=== PATIENT | male | born 1945 | race Caucasian/White ===

== ENCOUNTER 2018-08-15 11:47 | Emergency (ER) | payer MEDICARE, OTHER ==
[2018-08-15 12:06] VITALS: BP 123/81
--- NOTE | 2018-08-15 13:35 | ED Physician Documentation ---
History of Present Illness - Stated complaint Stated Complaint: R THUMB PAIN - Chief complaint Chief Complaint: Ext Problem - History obtained from History obtained from: Patient - History of Present Illness Timing: How many days ago (4) - Additonal information Additional information: 73-year-old male has developed pain and swelling around the cuticle of the right thumb and He has some pain associated with this and discoloration underneath his nail. He did not injure his finger and he has had something similar to this before with a paronychia. He denies any fever or chills. Review of Systems Constitutional: denies: Fever, Chills Respiratory: denies: Cough GI: denies: Vomiting Skin: denies: Rash Musculoskeletal: reports: Extremity pain. denies: Neck pain, Back pain Neurologic: denies: Generalized weakness, Focal weakness, Numbness PD PAST MEDICAL HISTORY - Past Surgical History Past Surgical History: Yes HEENT: Tonsil/Adenoidectomy - Present Medications Home Medications: Ambulatory Orders Medication Instructions Recorded Confirmed Supplements 05/01/14 05/01/14 Meclizine [Antivert] 25 mg PO Q6H PRN #20 tablet 12/25/15 Promethazine [Phenergan] 25 - 50 mg PO Q6H PRN #10 tab 12/25/15 Sulfamethoxazole/Trimethoprim 1 each PO ACHS #14 tablet 08/15/18 [Sulfamethoxazole-Tmp Ds Tablet] - Allergies Allergies/Adverse Reactions: Allergies Allergy/AdvReac Type Severity Reaction Status Date / Time No Known Drug Allergies Allergy Unverified 12/25/15 14:16 - Social History Does the pt smoke?: No Smoking Status: Never smoker Does the pt drink ETOH?: No Does the pt have substance abuse?: No - Immunizations Immunizations are current?: Yes - POLST Patient has POLST: No PD ED PE NORMAL - Vitals Vital signs reviewed: Yes (hypertensive mild) - General General: Alert and oriented X 3, No acute distress, Well developed/nourished - HEENT HEENT: Atraumatic, PERRL, EOMI - Respiratory Respiratory: No respiratory distress - Derm Derm: Normal color, Warm and dry, No rash - Extremities Extremities: No deformity, No edema, Other (There is erythema and swelling to the cuticle on the right thumb there is not extension of redness or lymphangitic streaking. There is discoloration consistent with elevation of the proximal nail with pus. There is no drainage. ) - Neuro Neuro: Alert and oriented X 3, centrifuge separator tender 2-12 intact, No motor deficit, No sensory deficit, Normal speech Eye Opening: Spontaneous Motor: Obeys Commands Verbal: Oriented GCS Score: 15 - Psych Psych: Normal mood, Normal affect Results - Vitals Vitals: Vital Signs - 24 hr 08/15/18 12:01 Temperature 36 C L Heart Rate 70 Respiratory 16 Rate Blood Pressure 123/81 H O2 Saturation 97 Oxygen O2 Source Room air PD MEDICAL DECISION MAKING - ED course Complexity details: considered differential, d/w patient ED course: 73-year-old male with a paronychia and pus under the nail is placed on the antibiotics and will use a warm compress I discussed with him trephinating the nail and he is not ready to do that at this point. He will do it himself if he feels it is needed. Departure - Departure Disposition: 01 Home, Self Care Clinical Impression: Paronychia Condition: Stable Instructions: ED Fingernail Infec Follow-Up: Devin Aguilar MD [Provider Admit Priv/Credential] - Prescriptions: Sulfamethoxazole/Trimethoprim [Sulfamethoxazole-Tmp Ds Tablet] 1 each PO ACHS #14 tablet
== END 2018-08-15 13:43 | disposition home or self-care (01) ==
LOC: ED 11:47
DX: L03.011 Cellulitis of right finger (principal)
CPT/HCPCS: 99283

== ENCOUNTER 2022-01-11 15:04 | Emergency (ER) | payer MEDICARE, OTHER ==
[2022-01-11 15:14] VITALS: BP 140/76
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
[2022-01-11] MEDS ORDERED: BACITRACIN ZINC OINT 1 PACKET TOP STA (15:37)
== END 2022-01-11 15:49 | disposition home or self-care (01) ==
LOC: ED 15:04
DX: S61.412A Laceration without foreign body of left hand, initial encounter (principal); W45.8XXA Other foreign body or object entering through skin, initial encounter; Y93.89 Activity, other specified; Y92.009 Unspecified place in unspecified non-institutional (private) residence as the place of occurrence of the external cause
CPT/HCPCS: 12002; 99281; A9270

== ENCOUNTER 2022-01-14 06:57 | Emergency (ER) | payer MEDICARE, OTHER ==
[2022-01-14 07:19] VITALS: BP 139/83
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
== END 2022-01-14 07:48 | disposition home or self-care (01) ==
LOC: ED 06:57
DX: S69.92XA Unspecified injury of left wrist, hand and finger(s), initial encounter (principal); X58.XXXA Exposure to other specified factors, initial encounter
CPT/HCPCS: 99281; 99282

== ENCOUNTER 2022-08-24 10:28 | Outpatient (CLI) | payer MEDICARE, OTHER ==
--- NOTE | 2022-08-24 17:27 | XRAY Report ---
PROCEDURE: Chest 2 View X-Ray INDICATIONS: COUGH TECHNIQUE: 2 views of the chest were acquired. COMPARISON: None. FINDINGS: Surgical changes and devices: None. Lungs and pleura: Diffuse chronic interstitial changes. Large density at the right lung base probably reflects or consolidation. Underlying vascular congestion noted as well. Blunting the right costophr enic angle. Left pleural space clear Mediastinum: Mediastinal contours are normal. Heart size is normal. Bones and chest wall: No suspicious bony abnormalities. Soft tissues appear unremarkable. IMPRESSION: 1. Moderate right pleural effusion and underlying vascular congestion 2. Large density at the right lung base, probable right middle lobe may reflect consolidation. Consid er follow-up CT evaluation Reviewed by: Siddhartha Jaimes MD on 08/24/2022 4:12 PM AKST Approved by: Siddhartha Jaimes MD on 08/24/2022 4:12 PM AKST Station ID: [id number]
== END 2022-08-24 10:29 | disposition home or self-care (01) ==
LOC: DI 10:28
PROVIDERS: ATTEND Family Medicine
DX: R05.9 Cough, unspecified (principal); U07.1 COVID-19; J90 Pleural effusion, not elsewhere classified; R91.8 Other nonspecific abnormal finding of lung field

== ENCOUNTER 2022-08-31 14:45 | Outpatient (CLI) | payer MEDICARE, OTHER ==
--- NOTE | 2022-08-31 16:49 | XRAY Report ---
PROCEDURE: Chest 2 View X-Ray INDICATIONS: RIGHT MIDDLE LOBE PNEUMONIA TECHNIQUE: 2 views of the chest were acquired. COMPARISON: CXR 08/24/2022. FINDINGS: Surgical changes and devices: None. Lungs and pleura: Silhouetting at the right lung base is overall similar. Small right pleural effusio n. Prominent, measuring markings. Mediastinum: Mediastinal contours are unchanged. Heart size is within normal limits. Bones and chest wall: No suspicious bony abnormalities. Soft tissues appear unremarkable. IMPRESSION: Right lower lobe consolidation or mass. Small right pleural effusion. Suspect pulmonary vascular engorgement. Recommend CT chest with IV contrast for further evaluation. Message left at urgent care at time of dictation. Reviewed by: Rafa Augirre MD on 08/31/2022 4:48 PM PST Approved by: Rafa Aguirre MD on 08/31/2022 4:48 PM PST Station ID: [id number]
== END 2022-08-31 14:46 | disposition home or self-care (01) ==
LOC: DI 14:45
PROVIDERS: ATTEND Family Medicine
DX: J18.9 Pneumonia, unspecified organism (principal); R91.8 Other nonspecific abnormal finding of lung field; J90 Pleural effusion, not elsewhere classified

== ENCOUNTER 2022-09-01 09:39 | Outpatient (CLI) | payer MEDICARE, OTHER ==
[2022-09-01 09:59] LABS: CREATININE 0.8 mg/dL (0.6-1.2)
[2022-09-01] MEDS ORDERED: iohexoL-300 100 ML VIAL ONE ×2 (10:02→14:58)
[2022-09-01] MEDS ORDERED: iohexoL-300 100 ML VIAL IVP ONE (10:25)
--- NOTE | 2022-09-01 11:04 | CT Report ---
PROCEDURE: CHEST W INDICATIONS: ABN CHEST XRAY, PNA CONTRAST:100ml omni 300 TECHNIQUE: After the administration of intravenous contrast, 1 mm axial images were acquired from the pulmonary apices through the posterior costophrenic angles. Axial 5 mm soft tissue kernel reconstructions were performed as well as 8 mm axial MIP and coronal and sagittal 5 mm reformations. For radiation dose reduction, the following was used: automated exposure control, adjustment of mA and/or kV according to patient size. COMPARISON: Chest radiograph dated 08/31/2022 and 08/24/2022. FINDINGS: Image quality: Excellent. Lungs and pleura: There are innumerable pulmonary nodules seen scattered throughout bilateral lung fi elds. Largest right upper lobe nodule measures 1.1 cm in size series 4 image 86. Largest right middle lobe nodule measures 7 mm in size series 4 image 256. Largest left upper lobe nodule measures 7 mm i n size series 4 image 124. Largest left lower lobe nodule measures 1.3 x 0.7 cm in size series 4 imag e 164. There is moderate sized right pleural effusion with near complete atelectasis of right lower l obe and compressive atelectasis in posterior aspect of right upper lobe. Fluid is seen extending to m inor fissure. Central airway is patent. There is suggestion of occluded distal right lower lobe bronc hus. No left-sided pleural effusion. No pneumothorax. Mediastinum: Heart size is enlarged. No pericardial effusion. Enlarged mediastinal and hilar lymph nodes are seen measures up to 1.4 cm in size in right paratracheal space series 3 image 30. Ascending thoracic aortic aneurysm is noted measures up to 4.3 cm in largest AP diameter. Pulmonary artery is also enlarged in size which can be seen associated with pulmonary vascular hypert ension. Esophagus is normal in caliber. No hiatal hernia. Bones and chest wall: No suspicious bony lesions. No vertebral body compression fractures. No axil guillaume or supraclavicular adenopathy by size criteria. The thyroid is normal in size and there are no incidental findings.. Abdomen: Visualized upper abdominal solid organs appear normal. Upper abdominal bowel loops are nor mal in caliber. There is suggestion of gallbladder wall thickening and small amount of pericholecyst ic fluid. IMPRESSION: 1. Moderate to large partially loculated right pleural effusion with near complete atelectasis of rig ht lower lobe and mild dependent atelectasis in posterior aspect of right upper and middle lobes. Flu id is seen extending to minor fissure. No left-sided pleural effusion. No pneumothorax. 2. Numerable solid nodules scattered throughout bilateral aerated lung silver concerning for extensiv e pulmonary metastatic disease. 3. Enlarged mediastinal and hilar lymph nodes concerning for metastatic lymphadenopathy. 4. Heart size is enlarged, no pericardial effusion. Prominent size of ascending thoracic aorta measur es up to 4.3 cm in largest AP diameter. Prominent size of main pulmonary artery is also seen which ca n be seen associated with pulmonary vascular hypertension. 5. Suggestion of occluded distal right lower lobe bronchus which may represent fluid and inflammatory material within the distal bronchus versus tumor mass occlusion. 6. Gallbladder wall thickening and small amount of pericholecystic fluid, suggest clinical correlatio n for possible cholecystitis. CLINICAL RECOMMENDATION STATEMENTS: In patients <35 years with an ITN detected on CT, MRI, or extrathyroidal ultrasound, the Committee re commends further evaluation with dedicated thyroid ultrasound if the nodule is "e1 cm and has no susp icious imaging features, and if the patient has normal life expectancy. In patients "e35 years with an ITN detected on CT, MRI, or extrathyroidal ultrasound, the Committee r ecommends further evaluation with dedicated thyroid ultrasound if the nodule is "e1.5 cm and has no s uspicious imaging features, and if the patient has normal life expectancy. (ACR, 2014) Reviewed by: Robert Gore MD on 09/01/2022 11:02 AM PST Approved by: Robert Gore MD on 09/01/2022 11:02 AM PST Station ID: [id number]
[2022-09-01] MEDS ORDERED: DIATRIZOATE MEGLU/DIATRIZO SOD 30 ML BOTTLE PO ONE ×2 (14:58→19:01)
[2022-09-01 15:09] LABS: BASOPHILS # (AUTO) 0.1 10^3/uL (0.0-0.1); BASOPHILS % (AUTO) 0.5 %; EOSINOPHILS # (AUTO) 1.5 10^3/uL (0.0-0.7); EOSINOPHILS % (AUTO) 8.6 %; HCT - HEMATOCRIT 42.1 % (42.0-52.0); HGB - HEMOGLOBIN 13.7 g/dL (14.0-18.0); LYMPHOCYTES % (AUTO) 5.9 %; MEAN CORPUSCULAR HEMOGLOBIN 30.5 pg (27.0-31.0); MEAN CORPUSCULAR HGB CONC 32.5 g/dL (32.0-36.0); MEAN CORPUSCULAR VOLUME 93.8 fL (80.0-94.0); MEAN PLATELET VOLUME 10.1 fL (7.4-11.4); MONOCYTES # (AUTO) 1.2 10^3/uL (0.0-1.0); MONOCYTES % (AUTO) 6.8 %; NEUTROPHILS # (AUTO) 13.4 10^3/uL (1.5-6.6); NEUTROPHILS % (AUTO) 77.8 %; PLT - PLATELET COUNT 247 10^3/uL (130-450); RED BLOOD COUNT 4.49 10^6/uL (4.70-6.10); RED CELL DISTRIBUTION WIDTH 13.3 % (12.0-15.0); WHITE BLOOD COUNT 17.3 x10^3/uL (4.8-10.8)
[2022-09-01 15:21] LABS: INR 1.1 (0.8-1.2); PT - PROTHROMBIN TIME 11.9 secs (9.9-12.6)
[2022-09-01 16:02] LABS: PSA TOTAL 5.37 ng/mL (0.000-2.000)
[2022-09-01 16:29] LABS: ALBUMIN 3.2 g/dL (3.2-5.5); ALBUMIN/GLOBULIN RATIO 1.1 (1.0-2.2); BILIRUBIN,TOTAL 0.6 mg/dL (0.2-1.0); CALCIUM 8.9 mg/dL (8.5-10.3); CREATININE 0.8 mg/dL (0.6-1.2); POTASSIUM 3.9 mmol/L (3.5-5.0); TOTAL PROTEIN 6.2 g/dL (6.7-8.2)
[2022-09-01 16:39] LABS: PSA FREE 1.084 ng/mL (0.16-2.81)
--- NOTE | 2022-09-01 18:42 | CT Report ---
PROCEDURE: ABDOMEN/PELVIS W INDICATIONS: ABN CHEST XRAY, PNA CONTRAST: 100ml omni 300 TECHNIQUE: After the administration of oral and intravenous contrast, 5 mm thick sections acquired from the diap hragms to the symphysis. 5 mm thick coronal and sagittal reformats were acquired. For radiation dos e reduction, the following was used: automated exposure control, adjustment of mA and/or kV accordin g to patient size. COMPARISON: CT chest with, 09/01/2021. FINDINGS: Image quality: Excellent. ABDOMEN: Lung bases: Moderate right pleural effusion with right basilar consolidation or atelectasis. Multiple lung nodules are seen bilaterally. Heart size is normal. Solid organs: Liver and spleen are normal in size and enhancement. Gallbladder wall is thickened. Biliary system is non dilated. Pancreas enhances normally. There is a 1.3 cm left adrenal nodule. K idneys demonstrate normal size and enhancement, without hydronephrosis. There is a 3 mm noncompressi ve stone in the superior pole of the left kidney. Peritoneum and bowel: There is a gastric antral thickening. Bowel loops demonstrate normal wall thick ness and caliber. No free fluid or air. Nodes and vessels: There is periportal lymphadenopathy. For example, there is a 1.8 cm periportal ly mph node anterior to inferior vena cava. In addition, there are mildly enlarged para-aortic and aort ocaval lymph nodes in the upper abdomen. Aorta and inferior vena cava are normal in size. Miscellaneous: No ventral hernias. PELVIS: Genitourinary: Bladder wall thickness is normal. Prostate is enlarged. Miscellaneous: No inguinal hernias or adenopathy. Bones: No suspicious bony lesions. No vertebral body compression fractures. IMPRESSION: 1. Moderate right pleural effusion with right basilar consolidation or atelectasis. 2. Multiple small pulmonary nodules, concerning for metastatic disease. Please see separate CT chest report. 3. A 1.3 cm left adrenal nodule. Recommend adrenal protocol CT or MRI for follow-up evaluation. 4. Retroperitoneal lymphadenopathy suspicious for metastasis. 5. Gastric antral thickening, which could be caused by artifact or peptic ulcer disease. 6. Gallbladder wall thickening suggesting acute cholecystitis. Recommend ultrasound for further evalu ation. 7. Enlarged prostate. Reviewed by: Nohemy Dong MD on 09/01/2022 6:41 PM PST Approved by: Nohemy Dong MD on 09/01/2022 6:41 PM PST Station ID: [id number]
== END 2022-09-01 09:40 | disposition home or self-care (01) ==
LOC: LAB 09:39
PROVIDERS: ATTEND Family Medicine
DX: R91.8 Other nonspecific abnormal finding of lung field (principal); J90 Pleural effusion, not elsewhere classified; J18.9 Pneumonia, unspecified organism; K62.5 Hemorrhage of anus and rectum; E27.8 Other specified disorders of adrenal gland; R59.0 Localized enlarged lymph nodes; R93.3 Abnormal findings on diagnostic imaging of other parts of digestive tract; N40.0 Benign prostatic hyperplasia without lower urinary tract symptoms; J98.11 Atelectasis; I51.7 Cardiomegaly; I77.810 Thoracic aortic ectasia
CPT/HCPCS: 36415; 71260; 74177; 80053; 82378; 82565; 83690; 84153; 84154; 85025; 85610; Q9963; Q9967

== ENCOUNTER 2022-09-05 13:17 | Emergency (ER) | payer MEDICARE, OTHER ==
[2022-09-05 13:59] VITALS: BP 112/76
--- NOTE | 2022-09-05 14:56 | ED Physician Documentation ---
History of Present Illness - Stated complaint Stated Complaint: SOA - Chief complaint Chief Complaint: Resp - History obtained from History obtained from: Patient, Family - History of Present Illness Timing: How many weeks ago (several weeks) Pain level max: 0 Pain level now: 0 - Additonal information Additional information: 77-year-old male has been coughing for the past several weeks. He has been treated for pneumonia with Levaquin. He was recently changed to Augmentin and doxycycline. He had a recent chest x-ray that showed right lower lobe consolidation. He had a recent CT of the chest, abdomen and pelvis that showed a mass in the right lower lobe bronchus, partially loculated right-sided pleural effusion and debris in the bronchus. Patient has an appointment with a general surgeon today for a colonoscopy appointment. Patient states that he was told if his cough increased to come to the emergency department for evaluation. No difficulty breathing. No hypoxia. Nothing makes it better or worse. No fevers Review of Systems Constitutional: denies: Fever, Chills GI: denies: Vomiting, Diarrhea Skin: denies: Rash Musculoskeletal: denies: Neck pain, Back pain Neurologic: denies: Headache PD PAST MEDICAL HISTORY - Past Medical History Cardiovascular: None Respiratory: None - Past Surgical History Past Surgical History: Yes HEENT: Tonsil/Adenoidectomy - Present Medications Home Medications: Ambulatory Orders Medication Instructions Recorded Confirmed Supplements 05/01/14 05/01/14 Meclizine [Antivert] 25 mg PO Q6H PRN #20 tablet 12/25/15 Promethazine [Phenergan] 25 - 50 mg PO Q6H PRN #10 tab 12/25/15 Sulfamethoxazole/Trimethoprim 1 each PO ACHS #14 tablet 08/15/18 [Sulfamethoxazole-Tmp Ds Tablet] Hydrocodone Bit/Homatrop Me-Br 5 ml PO Q6H #60 ml 09/05/22 [Hycodan 5 mg-1.5 mg/5 ml Soln] Ondansetron Odt [Zofran] 4 mg TL Q6H PRN #10 tablet 09/05/22 - Allergies Allergies/Adverse Reactions: Allergies Allergy/AdvReac Type Severity Reaction Status Date / Time No Known Drug Allergies Allergy Verified 09/05/22 13:27 - Social History Does the pt smoke?: No Smoking Status: Never smoker Does the pt drink ETOH?: No Does the pt have substance abuse?: No - Immunizations Immunizations are current?: Yes - POLST Patient has POLST: No PD ED PE NORMAL - Vitals Vital signs reviewed: Yes - General General: Alert and oriented X 3, No acute distress, Well developed/nourished - HEENT HEENT: PERRL, Moist mucous membranes - Neck Neck: Supple, no meningeal sign - Cardiac Cardiac: RRR - Respiratory Respiratory: No respiratory distress, Other (decreased breath sounds RLL) - Abdomen Abdomen: Soft, Non tender, Non distended - Derm Derm: Warm and dry, No rash - Neuro Neuro: Alert and oriented X 3 - Psych Psych: Normal mood, Normal affect Results - Vitals Vitals: Vital Signs - 24 hr 09/05/22 09/05/22 13:24 13:58 Temperature 37.0 C Heart Rate 84 80 Respiratory 20 Rate Blood Pressure 149/84 H 112/76 O2 Saturation 96 97 Oxygen O2 Source Room air PD Medical Decision Making - ED course Complexity details: reviewed old records, considered differential, d/w patient, d/w family, d/w bi consultant ED course: 77-year-old male with continued cough. He is currently on antibiotics at home. I reviewed his CT report of the chest, abdomen and pelvis. Concerning for lung cancer with metastases throughout the lungs. Right-sided loculated pleural effusion. No hypoxia or respiratory distress. No need for emergent thoracentesis. I discussed the case with Dr. Murillo, provider who saw him at the walk-in clinic and he will place a referral for pulmonary bronchoscopy and IR thoracentesis for diagnosis. I went to the [facility] clinic and spoke with Dr. Hooper, oncology, she will pass his information along to their patient navigator. She requests a CT-guided lung biopsy. Dr. Murillo will order this as well. We will place the patient on cough medication for home and have him follow-up with these referrals for further care. Patient and family counseled regarding signs and symptoms for which I believe and urgent re-evaluation would be necessary. Patient with good understanding of and agreement to plan and is comfortable going home at this time This document was made in part using voice recognition software. While efforts are made to proofread this document, sound alike and grammatical errors may occur. No emergency medical condition at this time. Departure - Departure Disposition: Home, Self Care Clinical Impression: Pleural effusion, Lung mass Condition: Good Instructions: ED Effusion Pleural Follow-Up: ERIC MURILLO MD [Physician No Access] - Within 1 week Aranza Hooper MD [Physician No Access] - Within 1 week Alberto Sutton MD [Provider Admit Priv/Credential] - Prescriptions: Hydrocodone Bit/Homatrop Me-Br [Hycodan 5 mg-1.5 mg/5 ml Soln] 5 ml PO Q6H #60 ml Ondansetron Odt [Zofran] 4 mg TL Q6H PRN #10 tablet PRN Reason: Nausea / Vomiting Comments: Please follow up with oncology and Dr. Murillo for further care. I have sent your prescription to [facility] in [place]. I spoke with Dr. Murillo and Dr. Hooper today. Dr. Murillo is going to place a referral for you for a CT-guided biopsy of your right lung to evaluate the mass here at [facility] with radiology. He is also placing a referral for pulmonology in [place]. I gave your information to Dr. Hooper (oncology with [facility]) and the patient coordinator from [facility] oncology will call you as well to help coordinate further evaluation and care. Please finish the antibiotics as previously prescribed. Please return if you worsen. I am prescribing a short course of narcotic pain medication for you. These are potentially dangerous and addictive medications that should be used carefully. These medications may constipate you. Take an qtky-jch-dogsaqa stool softener (docusate) twice daily with plenty of water while taking these medications. If you go 24 hours without a bowel movement, take zcmn-ybm-iznymrc miralax, per package instructions. Do not drink or drive while taking these medications. If you received narcotic or sedating medications while in the emergency department, do not drive for 24 hours. Store this medication in a safe, secure place and out of reach of children. It is a violation of federal law to give or sell this medication to another person or to use in a manner other than prescribed. The ED will not refill narcotic prescriptions, including prescriptions lost or stolen. To dispose of unwanted medications: 1. [facility] [address] in [place] has a medication drop box. They accept prescription medications (in pill form) Ulisses through Sunday 9:00 a.m. to 5:00 p.m. 2. [facility] [employer] [place] [employer] accepts prescription medications (in pill form only) for disposal year round. Call for more information. 3. Contact the [facility] for the next [facility] sponsored prescription drug collection event. , [phone], or [phone]; Your CT scan reads are below. CT CHEST: FINDINGS: Image quality: Excellent. Lungs and pleura: There are innumerable pulmonary nodules seen scattered throughout bilateral lung silver. Largest right upper lobe nodule measures 1.1 cm in size series 4 image 86. Largest right middle lobe nodule measures 7 mm in size series 4 image 256. Largest left upper lobe nodule measures 7 mm in size series 4 image 124. Largest left lower lobe nodule measures 1.3 x 0.7 cm in size series 4 image 164. There is moderate sized right pleural effusion with near complete atelectasis of right lower lobe and compressive atelectasis in posterior aspect of right upper lobe. Fluid is seen extending to minor fissure. Central airway is patent. There is suggestion of occluded distal right lower lobe bronchus. No left-sided pleural effusion. No pneumothorax. Mediastinum: Heart size is enlarged. No pericardial effusion. Enlarged mediasti nal and hilar lymph nodes are seen measures up to 1.4 cm in size in right paratracheal space series 3 image 30. Ascend ing thoracic aortic aneurysm is noted measures up to 4.3 cm in largest AP diameter. Pulmonary artery is also enlarged in size which can be seen associated with pulmonary vascular hypertension. Esophagus is normal in caliber. No hiatal hernia. Bones and chest wall: No suspicious bony lesions. No vertebral body compression fractures. No axillary or supraclavicular adenopathy by size criteria. The thyroid is normal in size and there are no incidental findings.. Abdomen: Visualized upper abdominal solid organs appear normal. Upper abdominal bowel loops are normal in caliber. There is suggestion of gallbladder wall thickening and small amount of pericholecystic fluid. IMPRESSION: 1. Moderate to large partially loculated right pleural effusion with near complete atelectasis of right lower lobe and mild dependent atelectasis in posterior aspect of right upper and middle lobes. Fluid is seen extending to minor fissure. No left-sided pleural effusion. No pneumothorax. 2. Numerable solid nodules scattered throughout bilateral aerated lung silver concerning for extensive pulmonary metastatic disease. 3. Enlarged mediastinal and hilar lymph nodes concerning for metastatic lymphadenopathy. 4. Heart size is enlarged, no pericardial effusion. Prominent size of ascending thoracic aorta measures up to 4.3 cm in largest AP diameter. Prominent size of main pulmonary artery is also seen which can be seen associated with pulmonary vascular hypertension. 5. Suggestion of occluded distal right lower lobe bronchus which may represent fluid and inflammatory material within the distal bronchus versus tumor mass occlusion. 6. Gallbladder wall thickening and small amount of pericholecystic fluid, suggest clinical correlation for possible cholecystitis. CT ABDOMEN/PELVIS: ABDOMEN: Lung bases: Moderate right pleural effusion with right basilar consolidation or atelectasis. Multiple lung nodules are seen bilaterally. Heart size is normal. Solid organs: Liver and spleen are normal in size and enhancement. Gallbladder wall is thickened. Biliary system is non dilated. Pancreas enhances normally. There is a 1.3 cm left adrenal nodule. Kidneys demonstrate normal size and enhancement, without hydronephrosis. There is a 3 mm noncompressive stone in the superior pole of the left kidney. Peritoneum and bowel: There is a gastric antral thickening. Bowel loops demonstrate normal wall thickness and caliber. No free fluid or air. Nodes and vessels: There is periportal lymphadenopathy. For example, there is a 1.8 cm periportal lymph node anterior to inferior vena cava. In addition, there are mildly enlarged para-aortic and aortocaval lymph nodes in the upper abdomen. Aorta and inferior vena cava are normal in size. Miscellaneous: No ventral hernias. PELVIS: Genitourinary: Bladder wall thickness is normal. Prostate is enlarged. Miscellaneous: No inguinal hernias or adenopathy. Bones: No suspicious bony lesions. No vertebral body compression fractures. IMPRESSION: 1. Moderate right pleural effusion with right basilar consolidation or atelectasis. 2. Multiple small pulmonary nodules, concerning for metastatic disease. Please see separate CT chest report. 3. A 1.3 cm left adrenal nodule. Recommend adrenal protocol CT or MRI for follow-up evaluation. 4. Retroperitoneal lymphadenopathy suspicious for metastasis. 5. Gastric antral thickening, which could be caused by artifact or peptic ulcer disease. 6. Gallbladder wall thickening suggesting acute cholecystitis. Recommend ultrasound for further evaluation. 7. Enlarged prostate. Discharge Date/Time: 09/05/22 15:15
== END 2022-09-05 15:15 | disposition home or self-care (01) ==
LOC: ED 13:17
DX: J90 Pleural effusion, not elsewhere classified (principal); R91.8 Other nonspecific abnormal finding of lung field; Z79.899 Other long term (current) drug therapy
CPT/HCPCS: 99282; 99284

== ENCOUNTER 2022-09-07 11:21 | Day surgery (SDC) | payer MEDICARE, OTHER ==
[2022-09-07] MEDS ORDERED: LACTATED RINGERS 1,000 ML IV ONE (11:29)
[2022-09-07] MEDS ORDERED: PROPOFOL 200 MG/20 ML VIAL IVP ONE ×2 (11:35→12:22)
[2022-09-07] MEDS ORDERED: LIDOCAINE-PF 2% 10 ML AMP SUBQ ONE (11:36)
--- NOTE | 2022-09-07 12:00 | ANESTHESIA ---
Pre-Anesthesia VS, & Labs - Diagnosis abnormal ct scan - Procedure EGD Vital Signs: Temp Pulse Resp BP Pulse Ox O2 Flow Rate 36.6 C 78 16 134/91 H 95 0 09/07/22 11:39 09/07/22 11:39 09/07/22 11:39 09/07/22 11:39 09/07/22 11:39 09/07/22 11:39 Height: 6 ft Weight (kg): 87.5 kg Body Mass Index: 26.2 BMI Classification: Overweight - NPO >8 hours Home Medications and Allergies Home Medications: Ambulatory Orders Ondansetron HCl 1 tab PO PRN PRN 09/07/22 guaiFENesin [Chest Congestion Relief] 1 ea PO PRN PRN 09/07/22 Ondansetron HCl 1 tab PO PRN PRN 09/07/22 guaiFENesin [Chest Congestion Relief] 1 ea PO PRN PRN 09/07/22 Allergies/Adverse Reactions: Allergies Allergy/AdvReac Type Severity Reaction Status Date / Time No Known Drug Allergies Allergy Verified 09/05/22 13:27 Anes History & Medical History - Anesthetic History Anesthesia Complications: reports: No previous complications - Medical History Cardiovascular: reports: None Pulmonary: reports: Shortness of breath, Other (probable lung cancer, pleural effusion right lower lobe) Gastrointestinal: reports: GI bleed Urinary: reports: Benign prostate hypertrophy Neuro: reports: None Musculoskeletal: reports: None Endocrine/Autoimmune: reports: None Skin: reports: Other Smoking Status: Never smoker Psychosocial: reports: No issues indicated History of Cancer?: Yes (probable lung cancer) - Surgical History General: Eyes Ears Nose Throat (EENT): reports: Tonsil/Adenoidectomy Dermatologic: reports: Skin cancer surgery Exam General: Alert, Oriented x3, Cooperative, No acute distress Mouth Openin Fingerbreadth Neck Mobility: Normal Mallampati classification: II Thyromental Distance: 4-6 cm Mental/Cognitive Status: Alert/Oriented X3, Normal for patient Plan Anesthesia Type: General Consent for Procedure(s) Verified and Reviewed: Yes Code Status: Attempt Resuscitation ASA classification: 3-Severe systemic disease Is this case an emergency?: No
[2022-09-07] MEDS ORDERED: LACTATED RINGERS 600 ML IV ONE (12:33)
--- NOTE | 2022-09-07 12:57 | ANESTHESIA POST OP EVALUATION ---
Anesthesia Post Eval - Post Anesthesia Eval Vitals: Last Vital Signs Temp 36.3 C L 09/07/22 12:33 Pulse 81 09/07/22 12:40 Resp 16 09/07/22 12:40 BP 90/59 L 09/07/22 12:40 Pulse Ox 94 09/07/22 12:40 O2 Flow Rate 0 09/07/22 11:39 CV Function Including HR & BP: Stable Pain Control: Satisfactory Nausea & Vomiting: Negative Mental Status: Baseline Respiratory Status: Airway Patent Hydration Status: Satisfactory Anesthesia Complications: None
[2022-09-07 13:40] VITALS: BP 104/72
--- NOTE | 2022-09-07 14:46 | Ultrasound Report ---
PROCEDURE: Abdomen Limited INDICATIONS: epigastric pain and adenopathy, thickened gb on ct TECHNIQUE: Real-time focused scanning was performed of the abdomen, with image documentation. COMPARISON: 09/01/2022 CT examination FINDINGS: Liver is within normal limits without focal mass. Gallbladder wall is thickened at 3.8 mm without sludge or calculi. Negative sonographic Maher's sign. No biliary ductal dilatation. Pancreas is grossly unremarkable. Right kidney is grossly unremarkable without hydronephrosis. Proximal aorta is normal in caliber. IVC is patent. IMPRESSION: Thickened gallbladder wall, which could represent sequelae of portal hypertension/venous congestion v ersus cholecystitis in the appropriate clinical setting. Reviewed by: Joaquina Kennedy MD on 09/07/2022 2:45 PM PST Approved by: Joaquina Kennedy MD on 09/07/2022 2:45 PM PST Station ID: [id number]
== END 2022-09-07 11:22 | disposition home or self-care (01) ==
LOC: SDS 11:21
PROVIDERS: ATTEND Surgery
PROC: 0DB78ZX Excision of Stomach, Pylorus, Via Natural or Artificial Opening Endoscopic, Diagnostic (ICD-10-PCS; principal; 2022-09-07 12:30)
DX: R10.13 Epigastric pain (principal); R59.0 Localized enlarged lymph nodes; R68.81 Early satiety; R93.5 Abnormal findings on diagnostic imaging of other abdominal regions, including retroperitoneum; K29.50 Unspecified chronic gastritis without bleeding
CPT/HCPCS: 43239; 76705; J7120

== ENCOUNTER 2022-10-03 13:22 | Outpatient (CLI) | payer MEDICARE, OTHER ==
[2022-10-03 13:57] LABS: PT - PROTHROMBIN TIME 11.8 secs (9.9-12.6)
[2022-10-03 14:04] LABS: PARTIAL THROMBOPLASTIN TIME 26.1 secs (24.9-33.3)
--- NOTE | 2022-10-03 15:47 | XRAY Report ---
PROCEDURE: Post Thoracentesis 1V CXR INDICATIONS: POST THORACENTESIS TECHNIQUE: One view of the chest was acquired. COMPARISON: CT 09/01/2022 FINDINGS: Surgical changes and devices: None. Lungs and pleura: Pulmonary nodules are better seen on CT. Moderate right pleural effusion persists. Mediastinum: Heart borders are obscured. Bones and chest wall: No acute changes. IMPRESSION: Moderate right pleural effusion persists. No pneumothorax. Pulmonary nodules are better seen on CT. Reviewed by: Antelmo Wolf MD on 10/03/2022 3:45 PM PDT Approved by: Antelmo Wolf MD on 10/03/2022 3:45 PM PDT Station ID: [id number]
[2022-10-03] MEDS ORDERED: LIDOCAINE-MPF 1% 5 ML VIAL TD ONE (15:59)
--- NOTE | 2022-10-03 16:13 | Ultrasound Report ---
PROCEDURE: Thoracentesis Puncture INDICATIONS: PULMONARY CA TECHNIQUE: The indications, alternatives, benefits, risks, and complications of the procedure were explained to the patient. Written informed consent was obtained and placed in the chart. The chest was examined sonographically, and an appropriate site was chosen for thoracentesis. The skin was prepared and rubi ped in the usual sterile fashion, and 1% lidocaine was infiltrated from the skin down through the ple ural surface. A 19-gauge catheter-covered needle was then introduced into the pleural space, the cat heter was advanced and the needle was withdrawn, and thereafter pleural fluid was aspirated. The cat heter was then removed and a dressing was applied. COMPARISON: None. FINDINGS: Access site: Right hemithorax. Needle: One-Step centesis catheter with introducer needle. Fluid volume and description: 2 L, dark serous Fluid sent for diagnostic testing: No Medications: 1% lidocaine for local anaesthesia. Complications: None; post-procedural chest radiograph is pending to assess for pneumothorax. IMPRESSION: Successful ultrasound-guided thoracentesis. Patient was sent to the ED for chest discomfort and shortness of breath following the procedure. No p neumothorax was seen on postprocedure radiograph. A moderate effusion remains. Patient recovered spon taneously following arrival to the. Dr. Wolf discussed with patient about expected volume removal for future thoracenteses. Reviewed by: Antelmo Wolf MD on 10/03/2022 4:12 PM PDT Approved by: Antelmo Wolf MD on 10/03/2022 4:12 PM PDT Station ID: [id number]
== END 2022-10-03 13:23 | disposition home or self-care (01) ==
LOC: LAB 13:22
PROVIDERS: ATTEND Internal Medicine Hematology & Oncology
DX: C34.90 Malignant neoplasm of unspecified part of unspecified bronchus or lung (principal); C79.9 Secondary malignant neoplasm of unspecified site; J91.8 Pleural effusion in other conditions classified elsewhere
CPT/HCPCS: 32555; 36415; 85610; 85730

== ENCOUNTER 2022-10-03 15:24 | Emergency (ER) | payer MEDICARE, OTHER ==
--- OUTSIDE RECORDS SUMMARY | 2022-10-03 15:46 | EXTERNAL MEDICAL SUMMARY RPT | Continuity of Care Document ---
:1945 Author Organization [facility] Address [address] [place] [address] Phone Allergies No information. Encounters No information. Functional Status No information. Immunizations No information. Medications No information. 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 Results/Labs test date author facility value unit interpret ation Result panel 1 (unknown) (no (unknown) (unknown) (no value) (units (unk nown) date) unknown) (unknown) (no (unknown) (unknown) [id number] (units (unkn own) date) unknown) (unknown) (no (unknown) (unknown) 09/26/22 (units (unkno wn) date) unknown) (unknown) (no (unknown) (unknown) 1. No evidence (units (unknown) date) of deep venous unknown) thrombosis in visualized right lower extremity (unknown) (no (unknown) (unknown) [address] (units (unkn own) date) [address] unknown) (unknown) (no (unknown) (unknown) 2. Superficial (units (unknown) date) venous unknown) thrombosis involving right great saphenous vein as above. (unknown) (no (unknown) (unknown) Accession (units (unkn own) date) Number: unknown) [id number] (unknown) (no (unknown) (unknown) Age/Sex: 77 / M (units (unknown) date) Date of Service: unknown) (unknown) (no (unknown) (unknown) ANGELA Clayton (units ( unknown) date) [id number] unknown) (unknown) (no (unknown) (unknown) Approved by: (units (u nknown) date) Robert Gore M.D. unknown) on 09/26/2022 at 12:06 (unknown) (no (unknown) (unknown) COMPARISON: (units (un known) date) None. unknown) (unknown) (no (unknown) (unknown) : 1945 (units (unknown) date) Acct:[id number] unknown) (unknown) (no (unknown) (unknown) Dictated by: (units (u nknown) date) Robert Gore M.D. unknown) on 09/26/2022 at 12:05 (unknown) (no (unknown) (unknown) Examination of (units (unknown) date) the superficial unknown) venous system shows intraluminal filling defects (unknown) (no (unknown) (unknown) FINDINGS: The (units ( unknown) date) common femoral, unknown) femoral and popliteal veins are normally (unknown) (no (unknown) (unknown) IMPRESSION: (units (un known) date) unknown) (unknown) (no (unknown) (unknown) INDICATIONS: (units (u nknown) date) LOCALIZED [facility]DE[facility] unknown) (unknown) (no (unknown) (unknown) [facility] (units (unknown) date) unknown) (unknown) (no (unknown) (unknown) Loc: [place] (units (unkno wn) date) unknown) (unknown) (no (unknown) (unknown) Ordering (units (unkno wn) date) Provider: unknown) Sebas Campa MD (unknown) (no (unknown) (unknown) PROCEDURE: US (units ( unknown) date) PERIPH VENOUS unknown) LOW EXTREM RT (unknown) (no (unknown) (unknown) Patient: (units (unkno wn) date) Maurice Sotomayor Era unknown) MR#: [id number] (unknown) (no (unknown) (unknown) Procedure: US (units ( unknown) date) periph venous unknown) low extrem rt (unknown) (no (unknown) (unknown) Real-time (units (unkn own) date) imaging, as well unknown) as color and pulse Doppler interrogation, were (unknown) (no (unknown) (unknown) Signed (units (unkno wn) date) unknown) (unknown) (no (unknown) (unknown) TECHNIQUE: (units (unk nown) date) unknown) (unknown) (no (unknown) (unknown) Ultrasound (units (unk nown) date) Report unknown) (unknown) (no (unknown) (unknown) calf. (units (unkno wn) date) unknown) (unknown) (no (unknown) (unknown) compressible, (units ( unknown) date) and unknown) (unknown) (no (unknown) (unknown) fossa. (units (unkno wn) date) unknown) (unknown) (no (unknown) (unknown) free of (units (unkno wn) date) intraluminal unknown) thrombus. Color and pulse Doppler demonstrate normal (unknown) (no (unknown) (unknown) great saphenous (units (unknown) date) vein just above unknown) the level of right knee joint extending to right (unknown) (no (unknown) (unknown) intraluminal (units (u nknown) date) flow. There is unknown) normal augmentation response to distal compression (unknown) (no (unknown) (unknown) maneuver. (units (unkn own) date) unknown) (unknown) (no (unknown) (unknown) performed of (units (u nknown) date) unknown) (unknown) (no (unknown) (unknown) phasic (units (unkno wn) date) unknown) (unknown) (no (unknown) (unknown) the lower (units (unkn own) date) extremity deep unknown) veins from the inguinal ligament to the popliteal (unknown) (no (unknown) (unknown) veins. (units (unkno wn) date) unknown) (unknown) (no (unknown) (unknown) within (units (unkno wn) date) unknown) Social History No information. Vital Signs No information.
--- NOTE | 2022-10-03 15:55 | ED Physician Documentation ---
History of Present Illness - Stated complaint Stated Complaint: SOA - Chief complaint Chief Complaint: Resp - History obtained from History obtained from: Patient, Family - History of Present Illness Timing: Today Pain level max: 4 Pain level now: 0 - Additonal information Additional information: 77-year-old male with a history of lung cancer, was receiving a therapeutic thoracentesis for right-sided pleural effusion. Normally about 1 to 1.5 L was removed. Closer to 2 L was removed today and he began to feel chest pain on the right side, described as diffuse and dull. He felt like he was having difficulty breathing. The postprocedure x-ray did not show any pneumothorax. By the time the patient was brought over to the emergency department his symptoms had resolved. Currently the patient is asymptomatic. No fevers. No chills. Review of Systems Constitutional: denies: Fever Respiratory: denies: Cough, Wheezing PD PAST MEDICAL HISTORY - Past Medical History Cardiovascular: None Respiratory: Shortness of breath, Other (probable lung cancer, pleural effusion right lower lobe) Neuro: None Endocrine/Autoimmune: None GI: GI bleed : Benign prostate hypertrophy HEENT: Chronic hearing loss Psych: Claustrophobia Musculoskeletal: None Derm: Other - Past Surgical History Past Surgical History: Yes General:  HEENT: Tonsil/Adenoidectomy Derm: Skin cancer surgery - Present Medications Home Medications: Ambulatory Orders Medication Instructions Recorded Confirmed Ondansetron HCl 1 tab PO PRN PRN 09/07/22 10/02/22 guaiFENesin [Chest Congestion 1 ea PO PRN PRN 09/07/22 10/02/22 Relief] Apixaban [Eliquis] 2.5 mg PO BID 10/02/22 10/02/22 Folic Acid 0.4 mg PO DAILY 10/02/22 10/02/22 - Allergies Allergies/Adverse Reactions: Allergies Allergy/AdvReac Type Severity Reaction Status Date / Time No Known Drug Allergies Allergy Verified 10/03/22 15:34 - Social History Does the pt smoke?: No Smoking Status: Never smoker Does the pt drink ETOH?: No Does the pt have substance abuse?: No - Immunizations Immunizations are current?: Yes - POLST Patient has POLST: No PD ED PE NORMAL - Vitals Vital signs reviewed: Yes - General General: Alert and oriented X 3, No acute distress - HEENT HEENT: Moist mucous membranes - Neck Neck: Supple, no meningeal sign - Cardiac Cardiac: RRR, Strong equal pulses - Respiratory Respiratory: No respiratory distress, Other (Diminished breath sounds right lung base) - Abdomen Abdomen: Soft, Non tender, Non distended - Derm Derm: Warm and dry - Extremities Extremities: No calf tenderness / cord, Other (No chest wall tenderness to palpation.) - Neuro Neuro: Alert and oriented X 3 Results - Vitals Vitals: Vital Signs - 24 hr 10/03/22 10/03/22 10/03/22 15:30 15:47 16:03 Temperature 36.6 C Heart Rate 79 76 73 Respiratory 22 21 21 Rate Blood Pressure 114/78 110/74 107/77 O2 Saturation 99 100 99 Oxygen O2 Source Room air - EKG (time done) 1529 EKG releavant findings:: EKG personally interpreted by author of this note. Relevant findings are: Rate: Rate (enter#) (78) Rhythm: NSR [place]: Normal Intervals: Normal RI QRS: Normal Ischemia: Normal ST segments PD Medical Decision Making - ED course Complexity details: reviewed results, re-evaluated patient, considered differential, d/w patient ED course: 77-year-old male with chest pain during a thoracentesis today. Likely due to the negative pressure in the pleural cavity from the larger than usual amount of fluid that was removed. No evidence of pneumothorax on postprocedure chest x- ray. No hypoxia. No respiratory distress. No acute findings on EKG. Likely that his symptoms resolved when the pressure equilibrated. No evidence of an emergency medical condition at this time. Patient counseled regarding signs and symptoms for which I believe and urgent re-evaluation would be necessary. Patient with good understanding of and agreement to plan and is comfortable going home at this time This document was made in part using voice recognition software. While efforts are made to proofread this document, sound alike and grammatical errors may occur. Departure - Departure Disposition: 01 Home, Self Care Clinical Impression: S/P thoracentesis, Other acute postprocedural pain, Pleural effusion Condition: Good Instructions: Thoracentesis Dc Follow-Up: your,doctor as scheduled [Other] Comments: Please follow-up with your doctor for further care. Your chest x-ray does not show any evidence of pneumothorax or collapsed lung. Likely the pain that you felt today was from the negative pressure created by the larger volume than your usual thoracentesis. Please return for increasing pain or shortness of breath Discharge Date/Time: 10/03/22 16:19
[2022-10-03 16:04] VITALS: BP 107/77
== END 2022-10-03 16:19 | disposition home or self-care (01) ==
LOC: ED 15:24
DX: J90 Pleural effusion, not elsewhere classified (principal); G89.18 Other acute postprocedural pain; R07.9 Chest pain, unspecified
CPT/HCPCS: 93005; 99283

== ENCOUNTER 2022-10-23 14:13 | Emergency (ER) | payer MEDICARE, OTHER ==
[2022-10-23] MEDS ORDERED: LIDOCAINE 1%-EPI 1:100000 20 ML MDV SUBQ STA (14:22)
--- NOTE | 2022-10-23 14:29 | ED Physician Documentation ---
History of Present Illness - Stated complaint Stated Complaint: SOA - Chief complaint Chief Complaint: General - History obtained from History obtained from: Patient - Additonal information Additional information: 77-year-old gentleman with widely metastatic lung cancer undergoing treatment. He has a recurrent right pleural effusion and has had progressive dyspnea and chest pain over the last few days. They tried to get him into clinic to have an outpatient IR thoracentesis but unable to be scheduled in a timely manner and he is becoming increasingly symptomatic. PD PAST MEDICAL HISTORY - Past Medical History Cardiovascular: None Respiratory: Shortness of breath, Other Neuro: None Endocrine/Autoimmune: None GI: GI bleed : Benign prostate hypertrophy HEENT: Chronic hearing loss Psych: Claustrophobia Musculoskeletal: None Derm: Other - Past Surgical History Past Surgical History: Yes General:  HEENT: Tonsil/Adenoidectomy Derm: Skin cancer surgery - Present Medications Home Medications: Ambulatory Orders Medication Instructions Recorded Confirmed Ondansetron HCl 1 tab PO PRN PRN 09/07/22 10/23/22 guaiFENesin [Chest Congestion 1 ea PO PRN PRN 09/07/22 10/23/22 Relief] Apixaban [Eliquis] 2.5 mg PO BID 10/02/22 10/23/22 Folic Acid 0.4 mg PO DAILY 10/02/22 10/23/22 dexAMETHasone [Decadron] 1 mg PO DAILY 10/16/22 10/23/22 LORazepam [Ativan] 0.25 - 0.5 mg PO Q6H PRN 10/23/22 10/23/22 oxyCODONE [Roxicodone] 5 mg PO TID PRN 10/23/22 10/23/22 - Allergies Allergies/Adverse Reactions: Allergies Allergy/AdvReac Type Severity Reaction Status Date / Time No Known Drug Allergies Allergy Verified 10/23/22 14:46 - Social History Does the pt smoke?: No Smoking Status: Never smoker Does the pt drink ETOH?: No Does the pt have substance abuse?: No - Immunizations Immunizations are current?: Yes - POLST Patient has POLST: No PD ED PE NORMAL - Vitals Vital signs reviewed: Yes (Hypotensive and tachycardic) - General General: Alert and oriented X 3, Other (Well-appearing especially considering his vital signs.) - HEENT HEENT: PERRL, EOMI - Neck Neck: Supple, no meningeal sign, No bony TTP - Cardiac Cardiac: RRR, No murmur - Respiratory Respiratory: No respiratory distress, Other (No breath sounds on the right) - Abdomen Abdomen: Non tender - Neuro Neuro: Alert and oriented X 3, Normal speech Results - Vitals Vitals: Vital Signs - 24 hr 10/23/22 10/23/22 14:16 15:34 Temperature 36.5 C Heart Rate 125 H 95 Respiratory 18 17 Rate Blood Pressure 76/60 L 93/65 O2 Saturation 90 L 92 Oxygen O2 Source Room air - Labs Labs: Laboratory Tests 10/23/22 10/23/22 14:47 14:47 WBC 14.4 H RBC 4.40 L Hgb 13.5 L Hct 39.9 L MCV 90.7 MCH 30.7 MCHC 33.8 RDW 15.3 H Plt Count 210 MPV 9.7 Neut # (Auto) 12.3 H Lymph # (Auto) 0.6 L [place] # (Auto) 0.7 Eos # (Auto) 0.4 Baso # (Auto) 0.0 Absolute Nucleated RBC 0.00 Nucleated RBC % 0.0 Sodium 127 L Potassium 4.3 Chloride 91 L Carbon Dioxide 27 Anion Gap 9.0 BUN 15 Creatinine 0.8 Estimated GFR (MDRD) 94 Glucose 165 H Calcium 8.5 Procedures - Thoracentesis - Major Preparation: Consent obtained (written; After discussion of increased risk of bleeding given that he is anticoagulated and pneumothorax), Sterile prep and drape, Sitting Technique: Catheter over needle, Right, Ultrasound used Fluid: Other (1.5 L, he did not want more taken off as he has developed hemodynamic compromise in the past with larger volumes were obtained.) Aftercare: Dressing applied PD Medical Decision Making - ED course ED course: 77-year-old gentleman with recurrent right malignant pleural effusion which is symptomatic. Feeling much better after thoracentesis. He only wanted 1.5 L taken off as he has had hemodynamic compromise in the past when more was taken off. Departure - Departure Disposition: 01 Home, Self Care Clinical Impression: Pleural effusion Condition: Good Record reviewed to determine appropriate education?: Yes Instructions: Thoracentesis Dc Comments: You were seen today for recurrent right malignant pleural effusion. We drained 1.5 L. Follow-up with your oncologist as routine. Return for new or worsening symptoms. You were worried about dehydration and your sodium is mildly low, you received 1 L of normal saline.
--- OUTSIDE RECORDS SUMMARY | 2022-10-23 14:32 | EXTERNAL MEDICAL SUMMARY RPT | Continuity of Care Document ---
:1945 Author Organization [facility] [address] [place] [address] Phone Allergies No information. Encounters No information. Functional Status No information. Immunizations No information. Medications No information. 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 Results/Labs test date author facility value unit interpret ation Result panel 1 (unknown) (no (unknown) (unknown) (no value) (units (unk nown) date) unknown) (unknown) (no (unknown) (unknown) [id number] (units (unkn own) date) unknown) (unknown) (no [...] Accession (units (unkn own) date) Number: unknown) [id number] (unknown) (no (unknown) (unknown) Age/Sex: 77 / M (units (unknown) date) Date of Service: unknown) (unknown) (no (unknown) (unknown) ANGELA Clayton (units ( unknown) date) [id number] unknown) (unknown) (no (unknown) (unknown) Approved by: (units (u nknown) date) Robert Gore M.D. unknown) on 09/26/2022 at 12:06 (unknown) (no (unknown) (unknown) COMPARISON: (units (un known) date) None. unknown) (unknown) (no (unknown) (unknown) : 1945 (units (unknown) date) Acct:[id number] unknown) (unknown) (no (unknown) (unknown) Dictated by: [...] LOCALIZED [facility] unknown) (unknown) (no (unknown) (unknown) [facility] (units (unknown) date) unknown) (unknown) (no (unknown) [...]
--- NOTE | 2022-10-23 14:41 | XRAY Report ---
PROCEDURE: Chest 1 View X-Ray INDICATIONS: dyspnea TECHNIQUE: One view of the chest was acquired. COMPARISON: None. FINDINGS: Surgical changes and devices: None. Lungs and pleura: Large right pleural effusion with associated atelectasis. Increased pulmonary sanket ings. Mediastinum: Mediastinal contours appear normal. Heart size is normal. Bones and chest wall: No suspicious bony lesions. Overlying soft tissues appear unremarkable. IMPRESSION: Large right pleural effusion with associated atelectasis. Increased pulmonary markings, likely mild interstitial edema. Reviewed by: Reji Murphy on 10/23/2022 2:40 PM PDT Approved by: Reji Murphy on 10/23/2022 2:40 PM PDT Station ID: [id number]
[2022-10-23 14:58] LABS: BASOPHILS % (AUTO) 0.3 %; EOSINOPHILS # (AUTO) 0.4 10^3/uL (0.0-0.7); EOSINOPHILS % (AUTO) 2.9 %; HCT - HEMATOCRIT 39.9 % (42.0-52.0); HGB - HEMOGLOBIN 13.5 g/dL (14.0-18.0); LYMPHOCYTES # (AUTO) 0.6 10^3/uL (1.5-3.5); LYMPHOCYTES % (AUTO) 4.3 %; MEAN CORPUSCULAR HEMOGLOBIN 30.7 pg (27.0-31.0); MEAN CORPUSCULAR HGB CONC 33.8 g/dL (32.0-36.0); MEAN CORPUSCULAR VOLUME 90.7 fL (80.0-94.0); MEAN PLATELET VOLUME 9.7 fL (7.4-11.4); MONOCYTES # (AUTO) 0.7 10^3/uL (0.0-1.0); MONOCYTES % (AUTO) 4.7 %; NEUTROPHILS # (AUTO) 12.3 10^3/uL (1.5-6.6); NEUTROPHILS % (AUTO) 85.4 %; PLT - PLATELET COUNT 210 10^3/uL (130-450); RED CELL DISTRIBUTION WIDTH 15.3 % (12.0-15.0); WHITE BLOOD COUNT 14.4 x10^3/uL (4.8-10.8)
[2022-10-23 15:08] LABS: CALCIUM 8.5 mg/dL (8.5-10.3); CREATININE 0.8 mg/dL (0.6-1.2); POTASSIUM 4.3 mmol/L (3.5-5.0)
[2022-10-23] MEDS ORDERED: SODIUM CHLORIDE 0.9% 1,000 ML IV STA (15:13)
--- NOTE | 2022-10-23 16:26 | XRAY Report ---
PROCEDURE: Post Thoracentesis 1V CXR INDICATIONS: post thora TECHNIQUE: One view of the chest was acquired. COMPARISON: 10/23/2022 FINDINGS: Surgical changes and devices: None. Lungs and pleura: Moderate right pleural effusion has improved in prior exam. No pneumothorax Mediastinum: Mediastinal contours appear normal. Heart size is normal. Bones and chest wall: No suspicious bony lesions. Overlying soft tissues appear unremarkable. IMPRESSION: Moderate pleural effusion without pneumothorax status post thoracentesis Reviewed by: Siddhartha Jaimes MD on 10/23/2022 3:24 PM AKDT Approved by: Siddhartha Jaimes MD on 10/23/2022 3:24 PM AKDT Station ID: [id number]
[2022-10-23 16:40] VITALS: BP 101/79
== END 2022-10-23 16:59 | disposition home or self-care (01) ==
LOC: ED 14:13
DX: C34.90 Malignant neoplasm of unspecified part of unspecified bronchus or lung (principal); C79.9 Secondary malignant neoplasm of unspecified site; J91.0 Malignant pleural effusion; Z79.01 Long term (current) use of anticoagulants; Z79.899 Other long term (current) drug therapy
CPT/HCPCS: 32554; 36415; 80048; 85025; 99284

== ENCOUNTER 2022-10-30 09:45 | Outpatient (CLI) | payer MEDICARE, OTHER ==
[2022-10-30] MEDS ORDERED: LIDOCAINE-MPF 1% 5 ML VIAL ONE (09:55)
--- NOTE | 2022-10-30 10:57 | XRAY Report ---
PROCEDURE: Post Thoracentesis 1V CXR INDICATIONS: POST THORACENTESIS TECHNIQUE: One view of the chest was acquired. COMPARISON: None. FINDINGS: Surgical changes and devices: None. Lungs and pleura: Persistent large right pleural effusion. Increased pulmonary markings with diffuse nodularity. No pneumothorax. Mediastinum: Mediastinal contours appear normal. Heart size is normal. Bones and chest wall: No suspicious bony lesions. Overlying soft tissues appear unremarkable. IMPRESSION: No pneumothorax. Moderate pulmonary edema. Diffuse nodularity, presumably metastatic disease. Reviewed by: Reji Murphy on 10/30/2022 10:55 AM PDT Approved by: Reji Murphy on 10/30/2022 10:55 AM PDT Station ID: [id number]
[2022-10-30] MEDS ORDERED: LIDOCAINE-MPF 1% 5 ML VIAL TD ONE (11:23)
--- NOTE | 2022-10-30 11:42 | Ultrasound Report ---
PROCEDURE: Thoracentesis Puncture INDICATIONS: LUNG CA TECHNIQUE: The indications, alternatives, benefits, risks, and complications of the procedure were explained to the patient. Written informed consent was obtained and placed in the chart. The chest was examined sonographically, and an appropriate site was chosen for thoracentesis. The skin was prepared and rubi ped in the usual sterile fashion, and 1% lidocaine was infiltrated from the skin down through the ple ural surface. A 19-gauge catheter-covered needle was then introduced into the pleural space, the cat heter was advanced and the needle was withdrawn, and thereafter pleural fluid was aspirated. The cat heter was then removed and a dressing was applied. COMPARISON: None. FINDINGS: Access site: Right hemithorax. Needle: One-Step centesis catheter with introducer needle. Fluid volume and description: Straw color with red tinge. Fluid sent for diagnostic testing: No Medications: 1% lidocaine for local anaesthesia. Complications: None; post-procedural chest radiograph is pending to assess for pneumothorax. IMPRESSION: Successful ultrasound-guided thoracentesis. 1000 mL were obtained. Or fluid was not obt ained due to the patient's vital signs (systolic blood pressure in the 80s). Reviewed by: Reji Murphy on 10/30/2022 11:41 AM PDT Approved by: Reji Murphy on 10/30/2022 11:41 AM PDT Station ID: [id number]
--- NOTE | 2022-10-30 12:28 | ONCOLOGY/HEMATOLOGY VISIT ---
HEME/ONC PROGRESS NOTE: Oncology History. 1. 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 a. Induction chemotherapy carboplatin and Alimta 09/16/22 for 1 cycle due to symptoms while awaiting for molecular results. NGS done; variant mutation for +[id number]; +[id number]; neg for all other genes. b. PDL1 90% +; Single agent Keytruda 09/25/2022; 10/16/22. 2. Numerous brain metastasis with ring in hand cement and vasogenic edema; <1cm in size a. Decadron. 4mg BID 3. Moderate to large right pleural effusion with respiratory Distress. a. Multiple paracentesis. Last 09/17/22; 1.5 liters; 10/03/22, 2L. 4. Right lower extremity superficial venous thrombosis. 09/26/22 a. Eliquis, 5mg BID ASSESSMENT/PLAN: 1. Stage IV non-small cell lung cancer of the right lower lobe. 90%+ expression of PD-L1. . a. s/p Keytruda x 2 cycles; Markedly declining performance status, Confusion, weakness and LANG[place]. I saw him at the infusion center at request of our RN and family. We discussed further treatment options such as continuing on current program which appears not arresting his disease vs Adding chemotherapy to immunotherapy. but his current physical condition would not allow for safe delivery of further chemotherapy. We discussed comfort care with hospice involvement. He has already signed a DNR last week on the POLST form. After much discussion, the family and patient wished to move onto hospice care. Referral made. 2. Malignant pleural effusion management. Already worsening despite recent thoracentesis. 3. Brain metastasis. Multiple. Mild vasogenic edema. a. during our conversation, Intermittent confusion and into sleep status. able to engage in conversation for minutes. 4. Right lower extremity superficial venous thrombosis. 09/26/22 a. Eliquis 5. Goal of care and palliative care involvement. Not curable condition. Quickly declining physical and functional status. At home most time bedbound. Totally dependent on care. Performance status 4. a. Refer to hospice care. Life expectancy is very short. HISTORY OF CURRENT ILLNESS/REVIEW OF SYSTEMS: Detailed history is as documented on the note of 09/18/2022. Patient is here for Extra appointment due to declining physical condition since her last visit. Details as noted above. PMF SOCIAL HISTORY: Stopped smoking 40 years ago. No drink. . No similar family history. PHYSICAL EXAM: Intermittent confusions. Pale looking. Today's visit involves high complexity decision making for the high risk/life threatening diagnosis of metastatic/recurrent Lung cancer and other comorbidities, requiring anti-cancer/chemotherapy with significant toxicities, that require intensive monitoring, and management of cancer-related symptoms and side effects from anti-cancer treatments as listed in assessment and plan. Medical Decision Making: Number and Complexity of Problems Addressed: High - Acute or chronic illness that poses a threat to life or bodily function, cancer, need for chemotherapy, severe side effects from chemotherapy. Amount and/or complexity of data reviewed and analyzed: Review of external notes, laboratory/radiology results, and test ordering. Assessment requiring independent historian. Discussion of management or test interpretation with external physician Independent interpretation of test performed by another qualified health career agent Risk of Complications and/or Morbidity or Mortality of Patient Management: High - o Decision regarding termination of anti-cancer therapy, o drug therapy requiring intensive monitoring for toxicity o Decision regarding hospice o Decision not to resuscitate or to de-escalate care because of poor prognosis. Overall: High Clinical Data: Allergies No Known Drug Allergies Allergy (Verified 10/23/22 14:46) Home Medications Ondansetron HCl 1 tab PO PRN PRN 09/07/22 [History Last Taken Unknown] guaiFENesin [Chest Congestion Relief] 1 ea PO PRN PRN 09/07/22 [History Last Taken Unknown] Apixaban [Eliquis] 2.5 mg PO BID 10/02/22 [History Last Taken Unknown] Folic Acid 0.4 mg PO DAILY 10/02/22 [History Last Taken Unknown] dexAMETHasone [Decadron] 1 mg PO DAILY 10/16/22 [History Last Taken Unknown] LORazepam [Ativan] 0.25 - 0.5 mg PO Q6H PRN 10/23/22 [History Last Taken Unknown] oxyCODONE [Roxicodone] 5 mg PO TID PRN 10/23/22 [History Last Taken Unknown]
== END 2022-10-30 09:46 | disposition home or self-care (01) ==
LOC: DI 09:45
PROVIDERS: ATTEND Internal Medicine Hematology & Oncology
DX: C34.90 Malignant neoplasm of unspecified part of unspecified bronchus or lung (principal); J81.1 Chronic pulmonary edema; J90 Pleural effusion, not elsewhere classified
CPT/HCPCS: 32555